=== PATIENT | female | born 1990 | race Caucasian/White ===

== ENCOUNTER 2017-12-01 15:27 | Inpatient (IN) | payer OTHER ==
[2017-12-01] MEDS: SOD CHLORIDE 0.9% 1,000 ML IV (17:47)
[2017-12-01] MEDS: morphine 4 MG/ML VIAL IV (17:49)
[2017-12-01] MEDS: ONDANSETRON 4 MG INJ IV (17:49)
[2017-12-01 17:57] LABS: ADD MAN DIFF? NO
[2017-12-01 17:59] LABS: BASOPHILS % 0.2 % (0.0-2.0); EOSINOPHILS # 0.1 10^3/ul (0.0-0.5); EOSINOPHILS % 0.6 % (0.0-7.0); HEMATOCRIT 38.2 % (37.0-47.0); HEMOGLOBIN 12.6 g/dl (12.0-16.0); LYMPHOCYTES # 3.3 10^3/ul (0.8-2.9); LYMPHOCYTES % 37.4 % (15.0-51.0); MEAN CORPUSCULAR HEMOGLOBIN 30.8 pg (29.0-33.0); MEAN CORPUSCULAR VOLUME 93.4 fl (82.0-101.0); MEAN PLATELET VOLUME 10.5 fl (7.4-10.4); MONOCYTE # 0.5 10^3/ul (0.3-0.9); MONOCYTES % 5.1 % (0.0-11.0); NEUTROPHILS % 56.5 % (39.0-77.0); PLATELET COUNT 269 10^3/UL (140-415); RED BLOOD COUNT 4.09 10^6/ul (4.20-5.40)
[2017-12-01 17:59] LABS: WHITE BLOOD COUNT 8.9 10^3/ul (4.8-10.8)
[2017-12-01 18:23] LABS: ALANINE AMINOTRANSFERASE 20 IU/L (13-69); ALBUMIN 4.3 g/dl (3.3-4.9); ALKALINE PHOSPHATASE 72 IU/L (42-121); ANION GAP 14 (8-16); ASPARTATE AMINO TRANSFERASE 25 IU/L (15-46); BILIRUBIN,INDIRECT 0.2 mg/dl (0-1.1); BILIRUBIN,TOTAL 0.2 mg/dl (0.2-1.3); BLOOD UREA NITROGEN 6 mg/dl (7-20); CALCIUM 9.3 mg/dl (8.4-10.2); CARBON DIOXIDE 27 mmol/L (21-31); CHLORIDE 104 mmol/L (97-110); CREATININE 0.52 mg/dl (0.44-1.00); GLUCOSE 98 mg/dl (70-220); LIPASE 55 U/L (23-300); POTASSIUM 4.2 mmol/L (3.5-5.1); SODIUM 141 mmol/L (135-144); TOTAL PROTEIN 7.6 g/dl (6.1-8.1)
[2017-12-01 19:02] LABS: ADD UMIC YES; UR ASCORBIC ACID NEGATIVE (NEGATIVE); UR BACTERIA FEW /HPF (NONE SEEN); UR BILIRUBIN (Dip) NEGATIVE (NEGATIVE); UR BLOOD (Dip) 1+ mg/dL (NEGATIVE); UR CLARITY CLEAR (CLEAR); UR COLOR STRAW (YELLOW); UR GLUCOSE (Dip) NEGATIVE (NEGATIVE); UR KETONES (Dip) NEGATIVE (NEGATIVE); UR LEUKOCYTE ESTERASE (Dip) NEGATIVE Leu/ul (NEGATIVE); UR NITRITE (Dip) NEGATIVE (NEGATIVE); UR RBC 1 /HPF (0-5); UR SPECIFIC GRAVITY (Dip) 1.004 (1.003-1.030); UR TOTAL PROTEIN (Dip) NEGATIVE (NEGATIVE); UR UROBILINOGEN (Dip) NEGATIVE (NEGATIVE); UR WBC 1 /HPF (0-5)
[2017-12-01] MEDS ORDERED: ONDANSETRON 4 MG INJ IV (23:30)
[2017-12-02 00:55] LABS: CANCER ANTIGEN 125 < 5.5 U/ml (0.0-35.0)
[2017-12-02] MEDS: LACTATED RINGER'S 1,000 ML IV ×2 (07:57→18:41)
[2017-12-02 10:01] LABS: LACTATE DEHYDROGENASE 361 IU/L (313-618)
[2017-12-02] MEDS ORDERED: ROCURONIUM 50 MG INJ (15:15)
[2017-12-02] MEDS ORDERED: ROPIVACAINE 0.5 % 30 ML VIAL (15:15)
[2017-12-02] MEDS ORDERED: PROPOFOL 20 ML (15:15)
[2017-12-02] MEDS ORDERED: MIDAZOLAM 1 MG/ML 2 ML INJ (15:15)
[2017-12-02] MEDS ORDERED: METOCLOPRAMIDE 10 MG INJ (15:17)
[2017-12-02] MEDS ORDERED: KETOROLAC 30 MG INJ (15:28)
[2017-12-02] MEDS ORDERED: NEOSTIGMINE 3 MG/3 ML SYRINGE (15:28)
[2017-12-02] MEDS ORDERED: CEFAZOLIN 1 GM INJ (15:28)
[2017-12-02] MEDS ORDERED: GLYCOPYRROLATE 0.4 MG INJ (15:28)
[2017-12-02] MEDS ORDERED: DIPHENHYDRAMINE 50 MG INJ IV (15:30)
[2017-12-02] MEDS ORDERED: HYDROmorphONE 2 MG/ML SYG (16:26)
[2017-12-02] MEDS: MEPERIDINE 25 MG INJ IV (17:52)
[2017-12-02] MEDS: ONDANSETRON 4 MG INJ IV (17:52)
[2017-12-02] MEDS ORDERED: OXYCODONE/ACETAMINOPHEN (5/325) TAB PO (18:00)
[2017-12-03] MEDS: LACTATED RINGER'S 1,000 ML IV ×4 (00:20→19:07)
[2017-12-03] MEDS: KETOROLAC 30 MG INJ IV ×3 (05:54→19:07)
[2017-12-03 08:25] LABS: ADD MAN DIFF? NO
[2017-12-03 08:33] LABS: BASOPHILS % 0.1 % (0.0-2.0); EOSINOPHILS % 0.4 % (0.0-7.0); HEMATOCRIT 32.8 % (37.0-47.0); HEMOGLOBIN 10.9 g/dl (12.0-16.0); LYMPHOCYTES # 1.8 10^3/ul (0.8-2.9); LYMPHOCYTES % 21.9 % (15.0-51.0); MEAN CORPUSCULAR HEMOGLOBIN 30.8 pg (29.0-33.0); MEAN CORPUSCULAR HGB CONC 33.2 g/dl (32.0-37.0); MEAN CORPUSCULAR VOLUME 92.7 fl (82.0-101.0); MEAN PLATELET VOLUME 10.6 fl (7.4-10.4); MONOCYTE # 0.5 10^3/ul (0.3-0.9); MONOCYTES % 5.5 % (0.0-11.0); NEUTROPHILS % 71.9 % (39.0-77.0); PLATELET COUNT 226 10^3/UL (140-415); RED BLOOD COUNT 3.54 10^6/ul (4.20-5.40); RED CELL DISTRIBUTION WIDTH 12.9 % (11.5-14.5)
[2017-12-03 08:33] LABS: WHITE BLOOD COUNT 8.4 10^3/ul (4.8-10.8)
[2017-12-03] MEDS: IBUPROFEN 600 MG TAB PO (11:06)
[2017-12-04] MEDS: LACTATED RINGER'S 1,000 ML IV (05:29)
== END 2017-12-04 12:00 | disposition home or self-care (01) | DRG 743 ==
LOC: MS1 23:24 → FTE 15:27
PROC: 0UT60ZZ Resection of Left Fallopian Tube, Open Approach (ICD-10-PCS; principal; 2017-12-02 14:30)
PROC: 0UT10ZZ Resection of Left Ovary, Open Approach (ICD-10-PCS; 2017-12-02 14:30)
PROC: 0UB00ZZ Excision of Right Ovary, Open Approach (ICD-10-PCS; 2017-12-02 14:30)
DX: N83.512 Torsion of left ovary and ovarian pedicle (principal); D27.0 Benign neoplasm of right ovary; N83.202 Unspecified ovarian cyst, left side
CPT/HCPCS: 36415; 74176; 76830; 76856; 80053; 81001; 82105; 83615; 83690; 84702; 84703; 85025; 86304; 87086; 88305; 88307; 88331; 96374; 96375; 99285-25

== ENCOUNTER 2017-12-05 23:05 | Emergency (ER) | payer OTHER | END 2017-12-06 00:35 | disposition home or self-care (01) | LOC: FTE 23:05 | DX: Z48.01 Encounter for change or removal of surgical wound dressing (principal) | CPT/HCPCS: 99281 ==